=== PATIENT | male | born 1995 | race Caucasian/White ===

== ENCOUNTER 2018-09-14 14:36 | Emergency (ER) | payer OTHER ==
[2018-09-14] MEDS: IBUPROFEN 200 MG TAB PO (16:34)
== END 2018-09-14 18:06 | disposition home or self-care (01) ==
LOC: FTE 14:36
DX: S19.9XXA Unspecified injury of neck, initial encounter (principal); W20.8XXA Other cause of strike by thrown, projected or falling object, initial encounter; Y92.9 Unspecified place or not applicable
CPT/HCPCS: 72050; 99283-25